=== PATIENT | female | born 1965 | race American Indian/Alaskan Native ===

== ENCOUNTER 2017-03-06 11:07 | Outpatient (CLI) | payer OTHER ==
--- NOTE | 2017-03-06 11:50 | Mammography Report ---
Bilateral mammogram: No previous studies available. Findings: Dense breast parenchyma bilaterally. Punctate calcification upper right axilla. Benign injury no free air or focal asymmetry upper mid right breast. Impression: Focal asymmetry right breast. Recommend comparison with previous studies. If previous studies are not available, spot magnification, and if necessary, sonographic examination of focal density and spot magnification of calcification is advised. BI-RADS CATEGORY: 0 = Needs additional imaging evaluation ACR BI-RADS MAMMOGRAPHIC CODES: 0 = Needs additional imaging evaluation; 1 = Negative; 2 = Benign; 3 = Probably benign; 4 = Suspicious; 5 = Malignant; 6 = Known biopsy-proven malignancy COMMENT: 1. Dense breast tissue, i.e., adenosis, fibrocystic changes, etc., may obscure an underlying neoplasm. 2. Approximately 10% of cancers are not detected with mammography. 3. A negative mammography report should not delay biopsy if a clinically suspicious mass is present. COMMENT: Patient follow-up letters are generated in [place].
== END 2017-03-06 11:08 | disposition home or self-care (01) ==
LOC: MAMMO 11:07
PROVIDERS: ATTEND Family Medicine
DX: Z12.31 Encounter for screening mammogram for malignant neoplasm of breast (principal)
CPT/HCPCS: 77067; G0202